=== PATIENT | female | born 1985 | race Caucasian/White ===

== ENCOUNTER 2018-11-11 21:26 | Emergency (ER) | payer SELFPAY ==
[~2018-11-11] VITALS: Ht 154.9 cm; Wt 96.6 kg
[2018-11-11 21:35] VITALS: Ht 154.9 cm; Wt 96.6 kg
[2018-11-11 22:10] LABS: microscopic required? YES; urine erythrocyte 3+ (NEGATIVE)
[2018-11-11 22:13] LABS: BASOPHIL % 0.6 % (0-2); PLATELET COUNT 424 x10^3mcL (130-400); RED CELL DISTRIBUTION WIDTH 14.7 % (11.5-14.5)
[2018-11-11 22:17] LABS: CARBON DIOXIDE 28.9 mmol/L (21-32); CHLORIDE SERUM 106 mmol/L (98-107); CREATININE SERUM 0.7 mg/dL (0.6-1.0); GFR1 > 60 mL/min; GLUCOSE SERUM 109 mg/dL (74-106); POTASSIUM SERUM 4.1 mmol/L (3.5-5.1); SODIUM SERUM 142 mmol/L (136-145)
[2018-11-11 22:21] LABS: ALKALINE PHOSPHATASE 84 U/L (46-116); ALT/SGPT 44 U/L (14-59); AST/SGOT 12 U/L (15-37); BILIRUBIN TOTAL 0.2 mg/dL (0.20-1.00); TOTAL PROTEIN, SERUM 7.5 g/dL (6.4-8.2)
[2018-11-11 22:23] LABS: ALBUMIN 3.2 g/dL (3.4-5.0)
[2018-11-12 00:12] VITALS: BP 114/71
== END 2018-11-12 00:12 | disposition home or self-care (01) ==
LOC: ED 21:26
PROVIDERS: Emergency Medicine
DX: N39.0 Urinary tract infection, site not specified (principal); I10 Essential (primary) hypertension; J45.909 Unspecified asthma, uncomplicated; Z98.890 Other specified postprocedural states
CPT/HCPCS: 36415; J1885; Q0162

== ENCOUNTER 2019-01-31 20:04 | Emergency (ER) | payer MEDICAID ==
[~2019-01-31] VITALS: Ht 154.9 cm; Wt 101.6 kg
[2019-01-31 20:33] VITALS: Ht 154.9 cm; Wt 101.6 kg
[2019-01-31 23:54] VITALS: BP 120/74
== END 2019-01-31 23:54 | disposition home or self-care (01) ==
LOC: ED 20:04
DX: J02.9 Acute pharyngitis, unspecified (principal); J98.01 Acute bronchospasm
CPT/HCPCS: J1100; J7620